=== PATIENT | male | born 1950 | race African-American/Black ===

== ENCOUNTER 2017-06-13 22:42 | Observation (INO) | payer MEDICARE, BC ==
[2017-06-13 23:15] LABS: #Basophils 0.1 thou/uL (0.0-0.2); #Eosinphils 0.1 thou/uL (0.0-0.7); #Lymphocytes 4.1 thou/uL (1.20-3.40); #Monocytes 1.3 thou/uL (0.11-0.59); #Neutrophils 8.3 thou/uL (1.40-6.50); %Basophils 0.5 % (0.0-1.0); %Eosinophils 0.5 % (0.0-10.0); %Lymphocytes 29.7 % (21.0-51.0); %Monocytes 9.7 % (0.0-10.0); Hematocrit 44.6 % (42.0-52.0); Mean Platelet Volume 6.7 fL (7.4-10.4); Red Blood Cell (RBC) Count 4.63 mill/uL (4.70-6.10); White Blood Cell (WBC) Count 13.9 thou/uL (4.8-10.8)
--- NOTE | 2017-06-13 23:34 | RAD ---
AP VIEW OF THE CHEST 06/13/17 INDICATION: Chest pain. COMPARISON: Prior exam dated 02/11/13. IMPRESSION: No acute cardiopulmonary abnormality is evident. Stable chronic lung changes. COMMENTS: Heart size is accentuated by the technique. No air space consolidation or pleural effusion is evident . No pneumothorax is demonstrated. No acute osseous abnormality is noted. POS: [facility]
[2017-06-13 23:36] LABS: ALT (SGPT) 21 U/L (8-55); AST (SGOT) 22 U/L (5-34); Alkaline Phosphatase 63 U/L (40-150); Anion Gap 19 mmol/L (10-20); BUN (Urea Nitrogen) 10 mg/dL (8.4-25.7); Bilirubin, Total 0.9 mg/dL (0.2-1.2); CK (CPK) 125 U/L (30-200); Calc. Creatinine Clearance 0 mL/min (70-130); Carbon Dioxide 22 mmol/L (23-31); Chloride 99 mmol/L (98-107); Estimated GFR-MDRD 77; Globulin 3.7 g/dL (2.4-3.5); Protein, Total 8.2 g/dL (5.8-8.1)
[2017-06-13 23:40] LABS: Troponin I Less than 0.010 ng/mL (< 0.028)
[2017-06-14 02:30] LABS: Troponin I Less than 0.010 ng/mL (< 0.028)
[2017-06-14] MEDS ORDERED: Acetaminophen 325 MG TAB PO PRN ×2 (03:15→07:40)
[2017-06-14] MEDS ORDERED: Ondansetron ODT 4 MG TAB SL PRN (03:15)
[2017-06-14] MEDS ORDERED: Ondansetron HCl/PF 4 MG/2 ML Vial IVP PRN ×3 (03:15→07:40)
[2017-06-14 03:42] VITALS: BMI 25.9
[2017-06-14 05:32] LABS: Troponin I Less than 0.010 ng/mL (< 0.028)
[2017-06-14] MEDS ORDERED: Diabetic Tussin 200 MG/10 ML UDCUP PO PRN (07:40)
[2017-06-14] MEDS ORDERED: Calcium Carbonate 500 MG ChewTAB PO PRN (07:40)
[2017-06-14] MEDS ORDERED: Loratadine 10 MG TAB PO PRN (07:40)
[2017-06-14] MEDS ORDERED: cloNIDine 0.1 MG TAB PO PRN (07:40)
[2017-06-14] MEDS ORDERED: traMADol HCl 50 MG TAB PO PRN (07:40)
[2017-06-14] MEDS ORDERED: Benzonatate 100 MG CAP PO PRN (07:40)
[2017-06-14] MEDS ORDERED: Mag-Al 1200 mg/1200 mg/30 ML UDCUP PO PRN (07:40)
[2017-06-14] MEDS ORDERED: Bisacodyl 5 MG TAB PO PRN (07:40)
[2017-06-14] MEDS ORDERED: Senokot 8.6 MG TAB PO PRN (07:40)
[2017-06-14] MEDS ORDERED: Nitroglycerin 0.4 MG TAB (25 Tab Bottle) PO PRN (07:40)
[2017-06-14] MEDS ORDERED: Lorazepam 1 MG TAB PO PRN (07:40)
[2017-06-14] MEDS ORDERED: hydrALAZINE 20 MG/ML VIAL SLOW IVP PRN (07:40)
[2017-06-14] MEDS ORDERED: Atorvastatin Calcium 10 MG TAB PO SCH (09:00)
[2017-06-14] MEDS ORDERED: Potassium Chloride 10 MEQ TAB PO SCH (09:00)
--- NOTE | 2017-06-14 10:15 | CT ---
PRELIMINARY REPORT/[facility]/EMERGENCY AFTER HOURS PROCEDURE: EXAM: CT Angiography Chest With Intravenous Contrast EXAM DATE/TIME: Exam ordered 06/14/2017 1:02 AM CLINICAL HISTORY: 67 years old, male; Pain; Chest pain; Patient HX: Er 7; No previous exams; 67 y/o m with presentation of cp. Pt reports that he did squats and ran in place today, which is new for him, and denies any cp during this time. Pt started to have cp with left hand numbness and SOB soon after and family report s that he was "shaking all over". Pt reports that he has been having a "twinge" in his left arm over the past couple of days. Denies similar sensation in the past, denies any other complaints. Pt report s that he is completely asymptomatic at this time. Food And Nutrition Professor is dr. Zhao, HX of pvc's. Last c ath was x8 years ago, negative findings. No HX of dvt/pe. Pt took 324mg asa today TECHNIQUE: Axial computed tomographic angiography images of the chest with intravenous contrast using pulmonary embolism protocol. CONTRAST: 56 mL of ISO 370 administered intravenously. COMPARISON: No relevant prior studies available. FINDINGS: Pulmonary arteries: Unremarkable. No pulmonary embolism. Aorta: No acute findings. No thoracic aortic aneurysm. Lungs: Unremarkable. No mass. No consolidation. Pleural space: Unremarkable. No significant effusion. No pneumothorax. Heart: Unremarkable. No cardiomegaly. No significant pericardial effusion. No evidence of RV dysfunct ion. Mediastinum: Small amount of fluid in the lumen of the esophagus may signify gastroesophageal reflux. Bones/joints: No acute fracture. No dislocation. Soft tissues: Gynecomastia. Lymph nodes: Unremarkable. No enlarged lymph nodes. IMPRESSION: Small amount of fluid in the lumen of the esophagus may signify gastroesophageal reflux. Thank you for allowing us to participate in the care of your patient. Dictated and Authenticated by: Luciano Roque MD 06/14/2017 1:22 AM Central Time ([place] & [place]) FINAL REPORT EMERGENT AFTER HOURS CT ANGIO OF CHEST PERFORMED WITH INTRAVENOUS CONTRAST ENHANCEMENT WITH 3D RECONS TRUCTIONS: HISTORY: Chest pain and shortness of breath. FINDINGS: The lungs are clear of any infiltrative process. There is some subsegmental atelectatic change in th e lung bases. No pulmonary nodules. No significant mediastinal or hilar adenopathy. There is suboptimal pulmonary artery opacification. I do not see any large central pulmonary emboli. Peripheral emboli cannot be excluded on the basis of this exam. The thoracic aorta is normal in ca liber. Incidental note is made of fluid within the esophagus. Questionable slight esophageal wall thickenin g. Visualized liver parenchyma shows no findings. IMPRESSION: 1. Suboptimal contrast bolus is difficult to assess for pulmonary emboli, but no definite central em boli are seen. 2. Fluid within the esophagus suggesting the possibility of reflux. Consideration for endoscopy as clinically indicated. 3. This report is in agreement with the temporary report issued by [facility]. POS: [facility]
--- NOTE | 2017-06-14 12:10 | NM ---
NUCLEAR MEDICINE CARDIAC MYOCARDIAL PERFUSION SPECT EJECTION FRACTION STUDY WALL MOTION CINE: DATE: 06/14/17. HISTORY: A 67-year-old male with coronary artery disease, chest pain, dyspnea, hyperlipidemia, and hypertensio n. TECHNIQUE: Number of days: 1. Rest study: Tc99m sestamibi (Cardiolite) dose: 9.1 mCi. Pharmacologic stress: adenosine dose: 47 mg. Stress study: Tc99m sestamibi (Cardiolite) dose: 28.2 mCi. FINDINGS: CARDIAC (MYOCARDIAL PERFUSION) SPECT There is a fixed defect at the cardiac apex. No reversible perfusion defect is identified. EJECTION FRACTION STUDY EF = 42%. WALL MOTION CINE Diffuse mild global hypokinesis. IMPRESSION: 1. Decreased left ventricular ejection fraction of 42%. 2. No evidence of reversible ischemia. TIM Painter POS: [facility]
--- NOTE | 2017-06-14 12:22 | HP ---
DATE OF ADMISSION: 06/14/2017 PRIMARY CARE PHYSICIAN: Srinivas Agarwal M.D. CHIEF COMPLAINT: Chest pain and left arm tingling associated with diaphoresis. HISTORY OF PRESENTING ILLNESS: Mr. Pena is a very pleasant 67-year-old male with past medical history of hypertension, dyslipidemia, and prostate cancer in remission, who presented to the emergency room with above-mentioned complaints. History is mainly obtained by the patient, hi mself, and electronic medical records have been reviewed. According to Mr. Pena, he has been feeling fine up until yesterday. He has history of cardiac cat heterization done many years ago by Dr. Zhao and was reported to be normal. He reports that yes terday he did some exercises and shortly afterwards he started to have pain in his left side of the c hest. It was associated with left hand numbness and shortness of breath and then the family reported that he was seen to be shaking all over. He describes his symptoms as left arm twinge. He denies a ny similar symptoms in the past. He cannot recall any relieving or exacerbating factors. He denies any recent illnesses. He has no limitation to exercise in the past. He is compliant with his medica tions. He presented to the Emergency Room where he was found to be hemodynamically stable with blood pressur e of 161/85. His oxygen saturation was 100% on room air, but his pulse was 126. He underwent a CT angio of the chest in the ER, which was negative for any pulmonary embolism. Fluid was seen within the esophagus suggesting the possibility of reflux. His cardiac enzymes and initial EKG was unremarkable. He did have some leukocytosis without any significant left shift on lab work. He is now being admitted to the hospital for further workup and ACS rule out. PAST MEDICAL HISTORY: 1. History of prostate cancer. 2. Hypertension. 3. Dyslipidemia. PAST SURGICAL HISTORY: Prostatectomy. PSYCHIATRIC HISTORY: No anxiety and no depression. SOCIAL HISTORY: He is a social drinker. He used to smoke but quit smoking 20 years ago. He is pam ied and lives with his family. FAMILY HISTORY: Significant for prostate cancer in his father and grandfather. He denies any histor y of coronary artery disease, stroke, diabetes, hypertension or any cancers in his family. ALLERGIES: No known medication allergies. CURRENT MEDICATIONS: Amlodipine 10 mg daily, potassium chloride 10 mEq 3 times a day, losartan/hydro chlorothiazide 50/12.5 mg daily, atorvastatin 10 mg daily, and vitamin D3 daily. REVIEW OF SYSTEMS: The following complete review of systems was negative, unless otherwise mentioned in the HPI or below: Constitutional: Weight loss or gain, ability to conduct usual activities. Skin: Rash, itching. Eyes: Double vision, pain. ENT/Mouth: Nose bleeding, neck stiffness, pain, tenderness. Cardiovascular: Palpitations, dyspnea on exertion, orthopnea. Respiratory: Shortness of breath, wheezing, cough, hemoptysis, fever or night sweats. Gastrointestinal: Poor appetite, abdominal pain, heartburn, nausea, vomiting, constipation, or diarr hea. Genitourinary: Urgency, frequency, dysuria, nocturia. Musculoskeletal: Pain, swelling. Neurologic/Psychiatric: Anxiety, depression. Allergy/Immunologic: Skin rash, bleeding tendency. It is negative except for those mentioned in the history and physical. LABORATORY DATA AND IMAGING: On laboratory examination, his CBC shows WBCs at 13.9, hemoglobin 15.3, platelet count of 289, and neutrophils 59%. D-dimer is less than 0.27. Serum chemistries: Potassi um is 3.1 with repeat potassium of 3.5, blood sugar is 130, creatinine kinase is normal at 125, CK-MB normal at 1, troponin less than 0.010 x3. Chest x-ray upon presentation done in the emergency room is reviewed by myself. There is no evidence to suggest pleural effusion, edema or infiltrate. CT an aimee is negative for any central pulmonary embolism. PHYSICAL EXAMINATION: VITAL SIGNS: Include temperature 99 upon presentation, pulse of 96, respirations 20, saturating 97% on room air, and blood pressure 144/71. GENERAL: He is lying comfortably in bed in no acute distress, awake, alert, oriented x3. Family is at bedside. HEENT: Mucous membranes moist and pink. No oropharyngeal exudate or erythema. Head is normocephali c, atraumatic. Pupils are equal and reactive to light and accommodation. Extraocular movements inta ct. NECK: Supple without any lymphadenopathy, JVD or bruit. CHEST: Clear to auscultation without wheezing, rales or rhonchi. HEART: Regular rate and rhythm is regular without any murmur, rubs or gallops. ABDOMEN: Soft, nontender, and nondistended with positive bowel sounds. EXTREMITIES: Free of any cyanosis, clubbing, or edema. NEUROLOGIC: Examination is nonfocal. SKIN: Free of any rashes, bruises, feels warm and dry to touch. PSYCHIATRIC: Normal affect. IMPRESSION AND PLAN: 1. Chest pain, diaphoresis, and shortness of breath. His symptoms are concerning for acute coronary syndrome. I do not have the results of his cardiac catheterization done many years ago. At this ti me, he will be admitted for further evaluation. We will consult his riddler operator, Dr. Pavel martin inhouse. He will undergo nuclear medicine stress test at this time. We will admit him on telemetr y unit and start him on full dose aspirin with continuation of his ARB as well as statin. His sympto ms can be secondary to some acid reflux as well. He will be started on a proton pump inhibitor at th is time as well. Further management will depend upon his results and his hospital course. 2. Hypokalemia, it has resolved spontaneously. We will continue to monitor. 3. Leukocytosis, likely reactive to stress. No evidence to suggest any infection at this time. 4. History of hypertension. We will restart his home medications of losartan and hydrochlorothiazid e as well as Norvasc. 5. History of dyslipidemia. Resume Lipitor. He has had a lipid panel done earlier last month which was unremarkable with total cholesterol of 165, LDL of 89 and triglycerides of 91. 6. Code status: FULL CODE. Discussed with the patient. DISPOSITION: The patient is currently being admitted for further workup of chest pain and rule out A CS. Further management will depend upon his clinical course and recommendations from Cardiology.
[2017-06-14] MEDS ORDERED: ISOVUE-370 76%-LOCM 1 ML ONE (13:35)
--- NOTE | 2017-06-14 14:10 | CON ---
DATE OF CONSULTATION: 06/14/2017 REASON FOR CONSULTATION: Arm tingling and PVCs. HISTORY OF PRESENT ILLNESS: Mr. Pena is a very pleasant 67-year-old gentleman who I have seen and evaluated 8-9 years ago. He recently had an appointment with me due to bigeminy noted as an outpati ent. He recently presented with bilateral tingling in his arms. He states he had been working out earlier when he developed the above. He was seen and evaluated in the emergency room. Given bigeminy, he w as subsequently admitted. His CKs and troponins have been negative. PAST MEDICAL HISTORY: Hyperlipidemia, hypertension, prostate cancer, prostatectomy. SOCIAL HISTORY: No current tobacco or alcohol use. He is currently . ALLERGIES: None. MEDICATIONS: Include amlodipine, potassium chloride, losartan/hydrochlorothiazide, atorvastatin, and vitamin D3. REVIEW OF SYSTEMS: Ten point review of systems reviewed and as above, otherwise negative. PHYSICAL EXAMINATION: VITAL SIGNS: Blood pressure 133/63, pulse 49, temperature 98.6. GENERAL: Patient is a pleasant male who is in no acute distress. The patient appears his stated age . NEUROLOGIC: The patient is alert and oriented times 3 with no focal neurologic deficits. HEENT: Sclerae without icterus. Mouth has moist mucous membranes with normal pallor. NECK: No JVD. Carotid upstroke brisk. No bruits bilaterally. LUNGS: Clear to auscultation with unlabored respirations. BACK: No scoliosis or kyphosis. CARDIAC: Regular rate and rhythm with normal S1 and S2. No S3 or S4 noted. No significant rubs, m urmurs, thrills, or gallops noted throughout the precordium. PMI is not displaced. There is no para sternal heave. ABDOMEN: Soft, nontender, nondistended. No peritoneal signs present. No hepatosplenomegaly. No ab normal striae. EXTREMITIES: 2+ femoral and 2+ dorsalis pedis pulses. No cyanosis, clubbing, or edema. SKIN: No gross abnormalities. PERTINENT LABS: CK and troponin negative. Hemoglobin 15.3. EKG, normal sinus rhythm with nonspecific ST-T wave changes. Bigeminy noted. Stress rest myocardial perfusion recently with LVEF 45%, no ischemia present. IMPRESSION: 1. Atypical chest pain. 2. Bigeminy. RECOMMENDATIONS: His overall LVEF likely diminished on Cardiolite stress study due to PVCs. It is u nderestimate the LVEF. I would recommend an echo with Doppler to confirm. He has no current ischemi a present. His main issue may be his bigeminy. May need an outpatient workup to assess the presente d PVDs as an outpatient. I would also recommend adding low dose beta anaid therapy to try and supp ress the PVCs. He is currently asymptomatic from his PVCs. Otherwise, I have no further recommendat ions.
[2017-06-14] MEDS ORDERED: ADENOSINE 60 MG/20 ML VIAL ONE (15:26)
[2017-06-14 15:32] VITALS: BP 130/72; TEMP 98.4
[2017-06-14 16:11] LABS: Magnesium 2.1 mg/dL (1.6-2.6)
[2017-06-15] MEDS ORDERED: Aspirin 325 MG TAB PO SCH (09:00)
--- NOTE | 2017-06-15 09:12 | DIS ---
DATE OF ADMISSION: 06/14/2017 DATE OF DISCHARGE: 06/14/2017 CONDITION AT THE TIME OF DISCHARGE: Stable and improved. PRIMARY CARE PHYSICIAN: Dr. Srinivas Agarwal. PRIMARY SLIP LASTER: Dr. Addison Zhao. DISCHARGE DISPOSITION: Home. DISCHARGE FOLLOWUP: 1. Primary care physician. 2. Cardiology. DISCHARGE DIAGNOSES: 1. Chest pain, noncardiac. 2. Bigeminy. 3. Hypertension. 4. Dyslipidemia. 5. History of prostate cancer, status post surgery. DISCHARGE MEDICATIONS: Amlodipine 10 mg daily, potassium chloride 10 mEq daily, cholecalciferol 2000 units daily, atorvastatin 10 mg daily, Toprol-XL 25 mg daily, losartan 50 mg daily, aspirin 81 mg da isabell. Please note that the Toprol-XL is a new medication. He has been taken off his hydrochlorothiaz elaina. PROCEDURES DONE IN THE HOSPITAL: 1. CT angio of the thorax upon presentation, which is negative for any pulmonary embolism. The flui d in the esophagus suggests the possibility of reflux. 2. Transthoracic echocardiogram which shows EF is low at 45%-50%. Kennay noticed and low EF can b e secondary to this. 3. Nuclear medicine stress test, which estimated ejection fraction at 42%. He does have a fixed def ect at the cardiac apex without any reversible perfusion defect and diffuse mild global hypokinesis. CONSULTATION: Dr. Zhao from Cardiology. HISTORY OF PRESENT ILLNESS AND SHORT HOSPITAL COURSE: Mr. Pena is a 67-year-old -Spanish male with history of hypertension and dyslipidemia who presented to the hospital with complaints of c hest pain traveling down to his left arm associated with diaphoresis and some shortness of breath. Pattie martin was hemodynamically stable upon presentation and was admitted to rule out ACS. Please see admissio n history and physical for further details. HOSPITAL COURSE: His serial cardiac enzymes were trended and were unremarkable. He underwent a nucl ear medicine stress test and Cardiology was consulted. Dr. Zhao saw the patient. His stress te st did show some fixed defect and low EF. For this reason, Dr. Zhao ordered echocardiogram whic h showed EF better than the stress test at almost 50%. A CT angio was also done at presentation, whi ch was unremarkable for PE. Dr. Zhao suggested the patient be started on a beta anaid. He was taken off of his hydrochlor othiazide and continued on his ARB, along with his aspirin and statin. He was found to have some PVC s and beta-anaid therapy was thought to be essential in suppressing the PVCs as well. ACS was ruled out with a normal stress test and the patient was deemed stable for discharge. He was seen and examined prior to discharge. PHYSICAL EXAMINATION: VITAL SIGNS: Temperature 98.4, pulse of 55, respirations 18, saturating 97% on room air, blood press ure 130/72. No acute distress. CHEST: Clear to auscultation bilaterally. Rate and rhythm is regular. LABORATORY DATA: D-dimer less than 0.27. His serum chemistries, his potassium was 3.1 on admission which was rechecked and was 4 at the time of discharge with a magnesium of 2.1. He will follow up with Cardiology and primary care physician as an outpatient in approximately.
--- NOTE | 2017-06-21 15:35 | EKG ---
Test Reason : Blood Pressure : / mmHG Vent. Rate : 129 BPM Atrial Rate : 129 BPM P-R Int : 130 ms QRS Dur : 108 ms QT Int : 434 ms P-R-T Axes : 040 -67 003 degrees QTc Int : 635 ms Sinus tachycardia with frequent Premature ventricular complexes Possible Left atrial enlargement Left anterior fascicular block Cannot rule out Anterior infarct , age undetermined Abnormal ECG Confirmed by ISMAEL CAMPBELL D.O. ([id number]), newspaper editor managing ALESHA GILLETTE ([id number]) on 06/21/2017 3:34:40 PM Referred By: Confirmed By:ISMAEL CAMPBELL D.O.
== END 2017-06-14 16:55 | disposition home or self-care (01) ==
LOC: ERS 22:42 → 2SW 06-14 01:20
PROVIDERS: ADMIT Family Medicine; ATTEND Family Medicine
DX: R07.89 Other chest pain (principal); R00.8 Other abnormalities of heart beat; I10 Essential (primary) hypertension; E78.5 Hyperlipidemia, unspecified; E87.6 Hypokalemia; Z79.899 Other long term (current) drug therapy; Z90.79 Acquired absence of other genital organ(s); Z87.891 Personal history of nicotine dependence; Z85.46 Personal history of malignant neoplasm of prostate; Z80.42 Family history of malignant neoplasm of prostate
CPT/HCPCS: 71010; 71275; 78452; 80053; 82550; 82553; 83735; 84132 ×2; 84484 ×3; 85025; 85379; 93005; 93017; 93306; 94760; 99285; A9500; G0378; 36415; A4216; J0153

== ENCOUNTER 2018-06-11 08:17 | Outpatient (CLI) | payer MEDICARE, BC ==
--- NOTE | 2018-06-11 09:06 | ULT ---
ULTRASOUND ABDOMINAL AORTA: HISTORY: Screening for abdominal aortic aneurysm. FINDINGS: The abdominal aorta measures 2.4 cm in maximum AP dimension. IMPRESSION: No evidence of abdominal aortic aneurysm. POS: [facility]
== END 2018-06-11 08:18 | disposition home or self-care (01) ==
LOC: BICULT 08:17
PROVIDERS: ATTEND Family Medicine
DX: Z13.6 Encounter for screening for cardiovascular disorders (principal)
CPT/HCPCS: 76775